=== PATIENT | female | born 1955 | race Caucasian/White ===

== ENCOUNTER → 2016-05-16 | Outpatient (CLI) | payer OTHER ==
[~2016-05-16] VITALS: Ht 162.6 cm; Wt 101.1 kg
[~2016-05-16] MED LIST: B COMPLEX #11 EACH PO; CIPRO500 MG PO; FLOMAX0.4 MG PO; LISINOPRIL2.5 MG PO; PERCOCET 5/31 TABLET PO
== END | disposition home or self-care (01) ==
LOC: AMB 10:14
PROC: 0DBE8ZZ Excision of Large Intestine, Via Natural or Artificial Opening Endoscopic (ICD-10-PCS; principal; 2016-05-16)
DX: Z12.11 Encounter for screening for malignant neoplasm of colon (principal); D12.0 Benign neoplasm of cecum; D12.3 Benign neoplasm of transverse colon; D12.8 Benign neoplasm of rectum; K64.9 Unspecified hemorrhoids
CPT/HCPCS: 88305; J2250; J3010